=== PATIENT | male | born 1995 | race Caucasian/White ===

== ENCOUNTER → 2020-01-26 | Emergency (ER) | payer OTHER ==
[~2020-01-26] VITALS: Ht 182.9 cm; Wt 63.5 kg
[~2020-01-26] MED LIST: KETOROLAC TROMETH 30 MG/ML 1ML VIAL IV ONE
[2020-01-27 00:28] LABS: Basophils # (auto) 0.1 10 ^3/uL (0-0.2); Basophils % (auto) 0.5 % (0.0-2.0); Eosinophils # (auto) 0.1 10 ^3/uL (0-0.8); Eosinophils % (auto) 0.5 % (0.0-7.0); Hematocrit 41.2 % (41.0-53.0); Hemoglobin 14.1 g/dL (13.5-17.5); Lymphocytes # (auto) 1.9 10 ^3/uL (0.4-5.4); Lymphocytes % (auto) 16.6 % (10.0-50.0); Mean Corpuscular Hemoglobin 30.4 pg (28.0-32.0); Mean Corpuscular Hgb Conc. 34.2 g/dL (32.0-36.0); Mean Corpuscular Volume 88.8 fL (80.0-100.0); Monocytes # (auto) 0.9 10 ^3/uL (0-1.3); Monocytes % (auto) 7.9 % (0.0-12.0); Neutrophils # (auto) 8.7 10 ^3/uL (1.6-8.6); Neutrophils % (auto) 74.5 % (37.0-80.0); Nucleated Red Blood Cells % 0.1 %; Platelet Count (auto) 198 10^3/uL (140-450); Red Blood Cells 4.63 10^6/uL (4.5-5.90); Red Cell Distribution Width 12.7 % (11.8-14.3); White Blood Cell 11.7 10^3/uL (4.4-10.8)
[2020-01-27 00:42] LABS: Albumin 3.7 g/dL (3.4-5.0); BUN/Creatinine Ratio 9.6; Calcium 8.4 mg/dL (8.5-10.1); Potassium 3.4 mmol/L (3.5-5.1)
[2020-01-27 00:44] LABS: Total Protein 6.7 g/dL (6.4-8.2)
[2020-01-27 02:17] LABS: Urine Bacteria NONE SEEN /hpf (None Seen); Urine Blood Negative /uL (Negative); Urine Mucus FEW (None Seen); Urine Specific Gravity 1.034 (1.001-1.035); Urine WBC 3 /hpf (0 - 3)
[2020-01-27 02:29] LABS: Amphetamine Screen, Urine NEGATIVE (NEGATIVE); Barbiturate Scree,Urine NEGATIVE (NEGATIVE); Benzodiazephine Screen, Urine NEGATIVE (NEGATIVE); Cocaine Screen, Urine NEGATIVE (NEGATIVE); Opiate Scree,Urine NEGATIVE (NEGATIVE); Phencyclidine Screen, Urine NEGATIVE (NEGATIVE)
[2020-01-27 02:56] LABS: Cannabinoid Screen, Urine POSITIVE (NEGATIVE)
[2020-01-27 05:15] VITALS: BP 116/72
== END | disposition home or self-care (01) ==
LOC: ER 22:09
DX: N20.0 Calculus of kidney (principal); N13.30 Unspecified hydronephrosis; R51 Headache; Z90.49 Acquired absence of other specified parts of digestive tract
CPT/HCPCS: 36415; 70450; 72125; 74176; 80053; 80307; 81001; 85025; 96374